=== PATIENT | male | born 2000 | race Native Hawaiian/Other Pacific Islander ===

== ENCOUNTER 2022-02-18 18:20 | Emergency (ER) | payer OTHER ==
[~2022-02-18] VITALS: Ht 175.3 cm; Wt 104.3 kg
[2022-02-18 20:19] VITALS: BP 124/93; TEMP 98.2
== END 2022-02-18 20:19 | disposition home or self-care (01) ==
LOC: ED 18:20
DX: S96.812A Strain of other specified muscles and tendons at ankle and foot level, left foot, initial encounter (principal); Y93.01 Activity, walking, marching and hiking; Y92.89 Other specified places as the place of occurrence of the external cause
CPT/HCPCS: 99283